=== PATIENT | female | born 1990 | race Caucasian/White ===

== ENCOUNTER 2017-09-15 22:21 | Emergency (ER) | payer SELFPAY ==
[2017-09-15] MEDS ORDERED: KETOROLAC TROMETHAMINE INJ/PF 30 MG/1 ML SDV IM ONE (23:11)
[2017-09-15] MEDS ORDERED: PREDNISONE 20 MG TABLET PO ONE (23:11)
[2017-09-15] MEDS ORDERED: ALBUTEROL SULFATE 0.083% NEB 2.5 MG/3 ML AMPUL NEB ONE (23:11)
--- NOTE | 2017-09-15 23:15 | ER Document Report ---
ED General - General Chief Complaint: Cough Stated Complaint: COUGH Time Seen by Provider: 09/15/17 22:58 Notes: Patient is a 27-year-old female presents with complaint of body aches, cough, congestion. She says she feels like her lungs are on fire. She has large amount of congestion in her sinuses cause a lot of pressure in her face and head. She is says her had similar symptoms a week ago but he got better and then she picked up the symptoms to 4 days ago which have worsened. She does not smoke. She does not taking medications. She is otherwise healthy. No other complaints at this time. She does not have a thermometer at home and therefore has not checked her temperature. - Related Data Allergies/Adverse Reactions: latex Allergy (Verified 09/15/17 22:25) Past Medical History - Social History Smoking Status: Never Smoker Frequency of alcohol use: None Drug Abuse: None Family History: Reviewed & Not Pertinent Patient has suicidal ideation: No Patient has homicidal ideation: No Renal/ Medical History: Denies: Hx Peritoneal Dialysis Review of Systems - Review of Systems Notes: My Normal Review Basic REVIEW OF SYSTEMS: CONSTITUTIONAL : Subjective fever EENT: Nasal congestion CARDIOVASCULAR: Pain with cough. RESPIRATORY: Difficulty breathing and coughing. GASTROINTESTINAL: Denies abdominal pain. Denies nausea, vomiting, or diarrhea. Denies constipation. Last BM: MUSCULOSKELETAL: Denies neck or back pain or joint pain or swelling. SKIN: Denies rash or skin lesions. NEUROLOGICAL: Denies altered mental status or loss of consciousness. Denies headache. Denies weakness or paralysis or loss of use of either side. Denies problems with gait or speech. Denies sensory or motor loss. ALL OTHER SYSTEMS REVIEWED AND NEGATIVE. Physical Exam - Vital signs Vitals: Temp Pulse Resp BP Pulse Ox 98.8 F 116 H 18 144/75 H 95 09/15/17 22:27 09/15/17 22:27 09/15/17 22:27 09/15/17 22:27 09/15/17 22:27 - Notes Notes: General Appearance: Well nourished, alert, cooperative, no acute distress, no obvious discomfort. Audible nasal congestion on exam. Vitals: reviewed, See vital signs table. Head: no swelling or tenderness to the head Eyes: PERRL, EOMI, Conjuctiva clear Mouth: No decreasd moisture Throat: No tonsillar inflammation, No airway obstruction, No lymphadenopathy Lungs: Bilateral coarse breath sounds. No wheezing. Current cough on exam. No respiratory distress or accessory muscle use. No tachypnea. Heart: Normal rate, Regular rythm, No murmur, no rub Abdomen: Normal BS, soft, No rigidity, No abdominal tenderness, No guarding, no rebound, no abdominal masses, no organomegaly Extremities: good pulses in all extremities, no edema. Skin: warm, dry, appropriate color, no rash Neuro: speech clear, oriented x 3, normal affect, responds appropriately to questions. Course - Re-evaluation Re-evalutation: 09/16/17 00:16 Patient is feeling some improved after the nebulizer treatment. Chest x-ray is negative. She has what appears to be acute bronchitis. I will place on prednisone as well as given an inhaler. I encouraged her return to ER she has fevers, difficulty breathing, worsening cough, or she feels that she is worsening in any way. Patient agrees with plan will be discharged home. Dictation of this chart was performed using voice recognition software; therefore, there may be some unintended grammatical errors. - Vital Signs Vital signs: Temp Pulse Resp BP Pulse Ox 98.8 F 116 H 18 144/75 H 95 09/15/17 22:27 09/15/17 22:27 09/15/17 22:27 09/15/17 22:27 09/15/17 22:27 Discharge - Discharge Clinical Impression: Acute bronchitis Qualifiers: Bronchitis organism: unspecified organism Qualified Code(s): J20.9 - Acute bronchitis, unspecified Condition: Good Disposition: HOME, SELF-CARE Additional Instructions: Please use the inhaler as 2 puffs every 4 hours as needed for coughing. Please take Ibuprofen for pain. please take the prednisone as prescribed. please return to the ER immediately if you develop fevers, difficulty breathing, worsening cough, or feel that you are worsening. Prescriptions: Prednisone [Deltasone 20 mg Tablet] 3 tab PO DAILY 4 Days tablet
--- NOTE | 2017-09-15 23:58 | RADIOLOGY REPORT (SQ) ---
EXAM DESCRIPTION: CHEST PA/LAT COMPLETED DATE/TIME: 09/15/2017 11:51 pm REASON FOR STUDY: cough COMPARISON: None. EXAM PARAMETERS: NUMBER OF VIEWS: two views TECHNIQUE: Digital Frontal and Lateral radiographic views of the chest acquired. RADIATION DOSE: NA LIMITATIONS: none FINDINGS: LUNGS AND PLEURA: No opacities, masses or pneumothorax. No pleural effusion. MEDIASTINUM AND HILAR STRUCTURES: No masses or contour abnormalities. HEART AND VASCULAR STRUCTURES: Heart normal size. No evidence for failure. BONES: No acute findings. HARDWARE: None in the chest. OTHER: No other significant finding. IMPRESSION: NO SIGNIFICANT RADIOGRAPHIC FINDING IN THE CHEST. TECHNICAL DOCUMENTATION: JOB ID: [id number] [employer]- All Rights Reserved Reading location - IP/workstation name: [email or web address]
[2017-09-16] MEDS ORDERED: ALBUTEROL SULFATE HFA (90 MCG/PUFF) 8 GM MDI (1 MDI/ER DISP) IH ONE (00:14)
[2017-09-16 00:44] VITALS: BP 123/66
== END 2017-09-16 00:45 | disposition home or self-care (01) ==
LOC: ER 22:21
DX: J20.9 Acute bronchitis, unspecified (principal); R05 Cough; R09.81 Nasal congestion; R06.00 Dyspnea, unspecified; Z91.040 Latex allergy status
CPT/HCPCS: 94640; 99283; 96372; 71046; J1885; J7512; J3490